=== PATIENT | male | born 1960 | race Caucasian/White ===

== ENCOUNTER 2020-07-03 04:18 | Emergency (ER) | payer SELFPAY ==
[2020-07-03 04:31] VITALS: O2SAT 97
[2020-07-03] MEDS ORDERED: FLUORESCEIN SODIUM OPHTH STRIP ONE (04:31)
[2020-07-03] MEDS ORDERED: TETRACAINE HCL 0.5% OPHTH SOL 1 DROP ONE (04:31)
[2020-07-03] MEDS ORDERED: ERYTHROMYCIN OPHTH OINT 1 APPLIC LEFT_EYE ONE (04:40)
[2020-07-03] MEDS ORDERED: TETANUS-DIPHTHERIA TOXOIDS (TD) SYG IM ONE (04:40)
[2020-07-03] MEDS ORDERED: IBUPROFEN 200 MG TAB PO ONE (04:41)
[2020-07-03] MEDS ORDERED: HYDROcodone 5MG/APAP 325MG 1 EA TAB PO ONE (04:41)
--- NOTE | 2020-07-03 04:49 | ED.PDOC ---
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 Has been having tearing and discomfort since then. last tetanus over 5 years ago. Timing/Duration: abrupt Severity: moderate EENT Location: eye (L) Prearrival Treatment: other - eye drops Improving Factors: nothing Worsening Factors: other - light Home Medications: Ambulatory Orders Erythromycin Ophth Oint 1 gm OPHTH QID 5 Days #1 tube 07/03/20 Ibuprofen 600 mg PO QID PRN #30 tab 07/03/20 Review of Systems - Review of Systems Constitutional: Denies: chills, fever EENTM: States: eye pain, blurred vision, tearing. Denies: double vision, mouth pain Respiratory: Denies: cough, short of breath Cardiology: Denies: chest pain, palpitations Gastrointestinal/Abdominal: Denies: abdominal pain, diarrhea, nausea, vomiting Genitourinary: Denies: frequency, hematuria Musculoskeletal: Denies: back pain, neck pain Skin: Denies: rash Neurological: Denies: headache Endocrine: Denies: unexplained weight loss Hematologic/Lymphatic: Denies: easy bleeding, easy bruising Past Medical History (General) - Patient Medical History Hx of COPD: Yes Hx Cardiac Disorders: Yes Hx Congestive Heart Failure: Yes Hx Hypertension: Yes - Vaccination History Hx Tetanus, Diphtheria Vaccination: Yes Hx Influenza Vaccination: No Hx Pneumococcal Vaccination: No Immunizations Up to Date: Yes - Social History Hx Tobacco Use: No Hx Alcohol Use: No Family Medical History - Family History Mother Family History: Unknown Physical Exam - Physical Exam General Appearance: Alert, Comfortable, No apparent distress, Well Developed, Well Groomed, Well Hydrated, Well Nourished Eye Exam: right normal, left other - eye with rust ring in medial cornea, no evidence of abrasian. EOMI, PERRLA. conjunitival erythema. Throat Exam: normal mouth inspection Neck: non-tender, supple Cardiovascular/Respiratory: regular rate, rhythm, normal breath sounds, no respiratory distress Neurologic: housecalls nurse II-XII nml as tested, no motor/sensory deficits, alert, normal mood/affect, oriented x 3 Skin Exam: normal color, warm/dry Progress - Progress Progress: 07/03/20 04:49 up dated tetanus. eye was rinsed with copious saline. Due to location of rust ring, will defer to ophthalmology to remove. DUe to the length since orginal injury recommend patient follow up today. 07/03/20 05:42 The data reviewed when caring for this patient included: nurse notes, prior records, etc. The history and assessments from nurses notes were reviewed and considered, and the patient's home medication list was also reviewed and considered. My assessment and the results of testing completed here in the ED were discussed with the patient. All questions were answered, and they express understanding of my assessment and the plan. They have been instructed to return if their symptoms worsen, and have been asked to follow up with ophthalmology today to recheck today's presenting complaint. . I have reviewed medication, benefits, alternatives and side effects. Valerie Glez DO #[id number] 07/03/20 05:43 07/03/20 05:44 - EKG/XRAY/CT CT: orbit, soft tissue swelling no fb Departure - Departure Clinical Impression: Corneal rust ring of left eye Eye injury Qualifiers: Encounter type: initial encounter Laterality: left Qualified Code(s): S05.92XA - Unspecified injury of left eye and orbit, initial encounter Time of Disposition: 05:42 Disposition: Discharge to Home or Self Care Departure Forms: ED Discharge - Pt. Copy, Patient Portal Self Enrollment Instructions: DI for Eye Pain, Foreign Body in Eye (DC) Diet: resume usual diet Activity: increase activity as tolerated Referrals: Brian Romero MD [Physicians] - 07/03/20 Prescriptions: Erythromycin Ophth Oint 1 gm OPHTH QID 5 Days #1 tube Ibuprofen 600 mg PO QID PRN #30 tab PRN Reason: Pain Home Medications: Ambulatory Orders Erythromycin Ophth Oint 1 gm OPHTH QID 5 Days #1 tube 07/03/20 Ibuprofen 600 mg PO QID PRN #30 tab 07/03/20
[2020-07-03] MEDS ORDERED: HYDROCOD/APAP 7.5/325 (ER DISP) #3 TAB PO ONE (05:07)
--- NOTE | 2020-07-03 05:32 | CT ---
EXAM: CT Orbits COMPARISON: None. INDICATION: MAIN left eye fb TECHNIQUE: Contiguous direct axial images were obtained through the orbits. Coronal and sagittal reconstructions were performed. The exam was performed without intravenous administration of contrast. Automated exposure control was utilized on this examination as a dose lowering technique. FINDINGS: Orbits: There is mild swelling of the left preseptal soft tissues. There are calcifications in the supraorbital skin bilaterally. The postseptal soft tissues are unremarkable. The globes and optic nerves are intact. There is calcification of the left trochlear apparatus/superior oblique muscle. Extraocular muscles are otherwise normal. No significant proptosis. No acute orbital fractures. Intracranial structures: Visualized intracranial structures are normal. Visualized paranasal sinuses, skull base, mastoid air cells: Normal. IMPRESSION: Mild swelling of the left preseptal soft tissues without radiopaque orbital foreign body. Electronically signed by: Franky Pope MD 07/03/2020 5:31 AM ORGANIZATIONAL DEVELOPMENT DIRECTOR
[2020-07-03 05:57] VITALS: BP 162/90; TEMP 98
== END 2020-07-03 05:57 | disposition home or self-care (01) ==
LOC: ER 04:18
DX: T15.02XA Foreign body in cornea, left eye, initial encounter (principal); Y93.89 Activity, other specified; Y92.9 Unspecified place or not applicable; J44.9 Chronic obstructive pulmonary disease, unspecified; I50.9 Heart failure, unspecified; I11.0 Hypertensive heart disease with heart failure